=== PATIENT | female | born 1965 | race Caucasian/White ===

== ENCOUNTER → 2017-12-13 | Outpatient (CLI) | payer OTHER ==
[~2017-12-13] MED LIST: ACETAMINOPHEN-H1 TA1 PO; ANAPROX DS550 MG PO; AUGMENTIN 875875 MG PO; CEFDINIR300 MG PO; CYCLOBENZAPRINE10 MG PO; EFFEXOR50 MG PO; HYDROCODONE BIT1 T11 PO; IBU800 MG PO; OXYCODONE HCL15 MG PO; PERCOCET 325 MG1 TA2 PO; PROTONIX40 MG PO; Peridex 473 ML473 ML PO; SEPTRA DS 800 M1 TAB PO; SYNTHROID,LEV200 MCG PO; SYNTHROID300 MCG PO; ZITHROMAX500 MG PO; ZOFRAN ODT4 MG SL
== END | disposition home or self-care (01) ==
LOC: MRI 13:00
DX: S93.401D Sprain of unspecified ligament of right ankle, subsequent encounter (principal); S93.601D Unspecified sprain of right foot, subsequent encounter; M25.871 Other specified joint disorders, right ankle and foot

== ENCOUNTER → 2018-01-14 | Outpatient (CLI) | payer OTHER | END | disposition home or self-care (01) | LOC: ORTHO 00:37 | DX: M25.571 Pain in right ankle and joints of right foot (principal) ==

== ENCOUNTER → 2020-06-11 | Outpatient (CLI) | payer OTHER ==
[2020-06-11 14:30] LABS: BASO % 0.4 % (0.0-1.0); EOS # 0.2 10*3/uL (0.0-0.4); EOS % 2.3 % (1.0-4.0); HEMATOCRIT 37.1 % (37.0-47.0); LYMPH # 2.3 10*3/uL (1.3-4.4); LYMPH % 28.8 % (27.0-41.0); MEAN CELL VOLUME 86.3 fl (81.0-99.0); MEAN CORPUSCULAR HGB 26.7 pg (27.0-31.0); MEAN PLATELET VOLUME 11.2 fl (9.6-12.3); MONO # 0.7 10*3/uL (0.1-1.0); MONO % 8.4 % (3.0-9.0); NEUT # 4.6 10*3/uL (2.3-7.9); PLATELET COUNT AUTOMATED 324 10*3/uL (130-400); RED CELL DISTRI WIDTH 15.9 % (0-14.5); WHITE BLOOD COUNT 7.9 10*3/uL (4.8-10.8)
[2020-06-11 14:42] LABS: URINE AMPHETAMINES < 1000 (1000ng/ml); URINE BARBITURATES < 200 (200ng/ml); URINE BENZODIAZEPINES < 200 (200ng/ml); URINE CANNABINOIDS (THC) < 50 (50ng/ml); URINE COCAINE < 300 (300ng/ml); URINE METHADONE < 300 (300ng/ml); URINE OPIATES < 300 (300ng/ml)
[2020-06-11 14:43] LABS: BILIRUBIN NEGATIVE; BLOOD NEGATIVE (NEGATIVE); CLARITY CLEAR (CLEAR); COLOR YELLOW (YELLOW); GLUCOSE NEGATIVE; KETONE NEGATIVE; PH 7.5 (4.5-8.0)
[2020-06-11 14:44] LABS: BACTERIA 2+; EPITHELIAL CELLS TNTC; LEUKO ESTERASE 1+ (NEGATIVE); NITRITE NEGATIVE (NEGATIVE); RBC 0-2 rbc/hpf (0-2); UROBILINOGEN 0.2 E.U./dl (0.0-1.0)
[2020-06-11 14:48] LABS: URINE PHENCYCLIDINE < 25 (25ng/ml)
[2020-06-11 14:59] LABS: ALBUMIN 3.1 gm/dl (3.1-4.5); ALKALINE PHOSPHATASE 71 U/L (45-117); BUN 19 mg/dl (7-24); CHLORIDE 104 mmol/L (98-107); CHOLESTEROL 220 mg/dL (<200); CREATININE 0.74 mg/dL (0.55-1.02); GAMMA GLUTAMYL TRANSPEPTIDASE 14 U/L (5-55); HDL CHOLESTEROL 40 mg/dl (40-60); IRON 35 ug/dL (50-170); LDL CHOLESTEROL 153 mg/dL (9-159); POTASSIUM 2.6 mmol/L (3.5-5.1); SGPT/ALT 21 U/L (12-78); SODIUM 139 mmol/L (136-145); T3 UPTAKE 38 % (31-39); THYROXINE (T4) TOTAL 19.8 ug/dl (4.8-13.9); TOTAL IRON BINDING CAPACITY 324 ug/dl (250-450); TRIGLYCERIDES 134 mg/dl (<150); VLDL CHOLESTEROL 27 mg/dL (6-40)
[2020-06-11 15:06] LABS: SGOT/AST 11 IU/L (3-35); TOTAL PROTEIN 7.3 gm/dL (6.4-8.2)
[2020-06-11 15:07] LABS: THYROID STIM HORMONE (HS) < 0.005 uIU/ml (0.358-4.75)
[2020-06-11 16:13] LABS: FERRITIN 29.3 ng/mL (10.0-291.0); VITAMIN D, 25-HYDROXY 64.6 ng/mL (30-100)
[2020-06-12 06:07] LABS: HEPATITIS A AB, TOTAL Negative (Negative); HEPATITIS B SURFACE AB Non Reactive (.)
== END | disposition home or self-care (01) ==
LOC: LAB 13:11
PROVIDERS: Registered Nurse; ATTEND Family Medicine
DX: E55.9 Vitamin D deficiency, unspecified (principal); R53.83 Other fatigue; R79.89 Other specified abnormal findings of blood chemistry; F11.20 Opioid dependence, uncomplicated; Z72.89 Other problems related to lifestyle; Z11.59 Encounter for screening for other viral diseases

== ENCOUNTER 2020-06-24 23:16 | Emergency (ER) | payer OTHER ==
[~2020-06-24] VITALS: Ht 175.2 cm; Wt 95.3 kg
[2020-06-25 01:13] LABS: BASO # 0.1 10*3/uL (0.0-0.1); BASO % 0.5 % (0.0-1.0); EOS # 0.3 10*3/uL (0.0-0.4); EOS % 2.4 % (1.0-4.0); HEMATOCRIT 41.3 % (37.0-47.0); LYMPH # 3.3 10*3/uL (1.3-4.4); LYMPH % 29.8 % (27.0-41.0); MEAN CELL VOLUME 86.6 fl (81.0-99.0); MEAN CORPUSCULAR HGB 26.8 pg (27.0-31.0); MEAN PLATELET VOLUME 10.4 fl (9.6-12.3); MONO # 0.8 10*3/uL (0.1-1.0); MONO % 7.1 % (3.0-9.0); NEUT # 6.6 10*3/uL (2.3-7.9); NEUT % 59.9 % (47.0-73.0); PLATELET COUNT AUTOMATED 381 10*3/uL (130-400); RED BLOOD COUNT 4.77 10*6/uL (4.10-5.10); RED CELL DISTRI WIDTH 15.7 % (0-14.5)
[2020-06-25 01:51] LABS: ALBUMIN 3.5 gm/dl (3.1-4.5); ALKALINE PHOSPHATASE 81 U/L (45-117); BUN 25 mg/dl (7-24); CHLORIDE 108 mmol/L (98-107); CREATININE 0.95 mg/dL (0.55-1.02); POTASSIUM 3.5 mmol/L (3.5-5.1); SGOT/AST 14 IU/L (3-35); SGPT/ALT 20 U/L (12-78); SODIUM 135 mmol/L (136-145); TOTAL PROTEIN 8.2 gm/dL (6.4-8.2)
[2020-06-25 01:52] LABS: TROPONIN I < 0.015 ng/ml (<0.045)
== END 2020-06-25 02:03 | disposition home or self-care (01) ==
LOC: ED 23:16
PROVIDERS: Nurse Practitioner
DX: R07.81 Pleurodynia (principal); Z79.899 Other long term (current) drug therapy; W19.XXXA Unspecified fall, initial encounter; Y93.89 Activity, other specified; Y92.89 Other specified places as the place of occurrence of the external cause; Y99.8 Other external cause status

== ENCOUNTER → 2020-07-24 | Outpatient (CLI) | payer OTHER | END | disposition home or self-care (01) | LOC: COVID19 04:57 | PROVIDERS: ATTEND Family Medicine | DX: Z20.828 Contact with and (suspected) exposure to other viral communicable diseases (principal) ==

== ENCOUNTER → 2021-11-05 | Outpatient (CLI) | payer OTHER ==
[2021-11-05 16:57] LABS: BASO # 0.1 10*3/uL (0.0-0.1); BASO % 0.6 % (0.0-1.0); EOS # 0.2 10*3/uL (0.0-0.4); EOS % 2.1 % (1.0-4.0); LYMPH # 3.4 10*3/uL (1.3-4.4); LYMPH % 29.2 % (27.0-41.0); MEAN CELL VOLUME 86.8 fl (81.0-99.0); MEAN CORPUSCULAR HGB 27.3 pg (27.0-31.0); MEAN CORPUSCULAR HGB CONC 31.5 g/dl (33.0-37.0); MEAN PLATELET VOLUME 9.9 fl (9.6-12.3); MONO # 0.8 10*3/uL (0.1-1.0); MONO % 6.8 % (3.0-9.0); NEUT # 6.9 10*3/uL (2.3-7.9); NEUT % 59.8 % (47.0-73.0); PLATELET COUNT AUTOMATED 432 10*3/uL (130-400); RED BLOOD COUNT 4.61 10*6/uL (4.10-5.10); RED CELL DISTRI WIDTH 13.9 % (0-14.5); RETICULOCYTE % 1.37 % (0.50-2.50); WHITE BLOOD COUNT 11.6 10*3/uL (4.8-10.8)
[2021-11-05 17:42] LABS: ALKALINE PHOSPHATASE 93 U/L (45-117); BUN 16 mg/dl (7-24); CHLORIDE 112 mmol/L (98-107); CHOLESTEROL 219 mg/dL (<200); IRON 52 ug/dL (50-170); LDL CHOLESTEROL 140 mg/dL (9-159); POTASSIUM 3.9 mmol/L (3.5-5.1); SGOT/AST 27 IU/L (3-35); SGPT/ALT 67 U/L (12-78); SODIUM 143 mmol/L (136-145); THYROXINE (T4) TOTAL 10.2 ug/dl (4.8-13.9); TOTAL IRON BINDING CAPACITY 350 ug/dl (250-450); TOTAL PROTEIN 7.2 gm/dL (6.4-8.2); TRIGLYCERIDES 195 mg/dl (<150)
[2021-11-05 17:48] LABS: GAMMA GLUTAMYL TRANSPEPTIDASE 48 U/L (5-55); T3 UPTAKE 32 % (31-39)
[2021-11-05 17:54] LABS: FERRITIN 19.2 ng/mL (10.0-291.0)
[2021-11-05 18:06] LABS: BILIRUBIN Negative (Negative); BLOOD Negative (Negative); CLARITY Cloudy (Clear); COLOR Yellow (Yellow); GLUCOSE Negative (Negative); KETONE Negative (Negative); LEUKO ESTERASE 3+ (Negative); NITRITE Negative (Negative); SPECIFIC GRAVITY <= 1.005 (1.001-1.030); UROBILINOGEN 0.2 E.U./dl (0.0-1.0)
[2021-11-05 18:27] LABS: BACTERIA 4+; EPITHELIAL CELLS 51-100; WBC 21-30 wbc/hpf (0-5)
[2021-11-05 18:31] LABS: VITAMIN D, 25-HYDROXY 28.2 ng/mL (30-100)
== END | disposition home or self-care (01) ==
LOC: LAB 16:25
PROVIDERS: ATTEND Family Medicine
DX: M47.814 Spondylosis without myelopathy or radiculopathy, thoracic region (principal); M47.812 Spondylosis without myelopathy or radiculopathy, cervical region; E55.9 Vitamin D deficiency, unspecified; R79.89 Other specified abnormal findings of blood chemistry; R74.8 Abnormal levels of other serum enzymes; R53.83 Other fatigue; E78.5 Hyperlipidemia, unspecified

== ENCOUNTER 2023-09-06 10:19 | Emergency (ER) | payer OTHER ==
[~2023-09-06] VITALS: Ht 175.2 cm; Wt 115.7 kg
[2023-09-06] MEDS ORDERED: PREDNISONE20 M1 PO (10:59)
[2023-09-06] MEDS ORDERED: POLYTRIM 1000010 ML OPH (10:59)
== END 2023-09-06 11:06 | disposition home or self-care (01) ==
LOC: ED 10:19
DX: M25.571 Pain in right ankle and joints of right foot (principal); M54.50 Low back pain, unspecified; H10.9 Unspecified conjunctivitis; Z98.890 Other specified postprocedural states; Z87.891 Personal history of nicotine dependence